=== PATIENT | male | born 1975 | race Caucasian/White ===

== ENCOUNTER 2025-06-20 21:14 | Emergency (ER) | payer OTHER ==
[~2025-06-20] VITALS: Ht 175.3 cm; Wt 104.3 kg
[2025-06-20] MEDS ORDERED: Ketorolac Tromethamine 15mg Vial IM ONE (22:20)
[2025-06-20] MEDS ORDERED: Dexamethasone Sod Phos 10 MG/ML 1ML VIAL PO ONE (22:20)
[2025-06-20] MEDS ORDERED: CELEBREX200 MG PO (22:24)
[2025-06-20] MEDS ORDERED: OMEP20ER PO (22:25)
[2025-06-20] MEDS ORDERED: NS 1,000 ML IV SCH (22:25)
[2025-06-20] MEDS ORDERED: Ketorolac Tromethamine 15mg Vial IV ONE (22:25)
[2025-06-20] MEDS ORDERED: Dexamethasone Sod Phos 10 MG/ML 1ML VIAL IV ONE (22:25)
[2025-06-20] MEDS ORDERED: DEPO-TESTO200 MG/18 IM (22:25)
== END 2025-06-20 23:50 | disposition home or self-care (01) ==
LOC: ER 21:14
DX: J02.9 Acute pharyngitis, unspecified (principal)
CPT/HCPCS: 87430; J1100; J1885; J7030